=== PATIENT | male | born 2000 | race Two or more races ===

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

== ENCOUNTER 2021-01-17 14:50 | Emergency (ER) | payer OTHER ==
[~2021-01-17] VITALS: Ht 172.7 cm; Wt 80.3 kg
[~2021-01-17 14:50] MED LIST changes: +NEO/5DRO18 EACHEYE
[2021-01-17] MEDS ORDERED: FLUORESCEIN SODIUM OPHTH 1 EA STRIP ONE (15:02)
[2021-01-17] MEDS ORDERED: FLUORESCEIN SODIUM OPHTH 1 EA STRIP OP ONE (15:30)
--- NOTE | 2021-01-17 16:00 | NUR ---
Patient came in to the er c/o right eye pain since yesterday 10/15 pain scale. Both 20/20, L 20/20, R 20/20. On room air, breathing evenly and unlabored. Kept comfortable, will continue to monitor accordingly.
[2021-01-17] MEDS ORDERED: CIPR5DRO RIGHTEYE (16:10)
[2021-01-17 16:13] VITALS: BP 116/61
--- NOTE | 2021-01-17 16:13 | NUR ---
Patient discharged to home in stable condition. Written and verbal after care instructions given. Patient verbalizes understanding of instruction.
== END 2021-01-17 16:13 | disposition home or self-care (01) ==
LOC: ER 15:00
DX: T15.01XA Foreign body in cornea, right eye, initial encounter (principal); J45.909 Unspecified asthma, uncomplicated; Z79.899 Other long term (current) drug therapy; W45.8XXA Other foreign body or object entering through skin, initial encounter; Y93.89 Activity, other specified; Y92.89 Other specified places as the place of occurrence of the external cause; Y99.8 Other external cause status

== ENCOUNTER 2021-10-18 22:03 | Emergency (ER) | payer OTHER ==
[~2021-10-18] VITALS: Ht 172.7 cm; Wt 72.6 kg
[~2021-10-18 22:03] MED LIST changes: +CIPR5DRO RIGHTEYE
[2021-10-18] MEDS ORDERED: FLUORESCEIN SODIUM OPHTH 1 EA STRIP ONE (22:36)
[2021-10-18] MEDS ORDERED: ERYT3.5O9 LEFTEYE (22:45)
[2021-10-18 23:01] VITALS: BP 122/70
--- NOTE | 2021-10-18 23:01 | NUR ---
Patient discharged to home in stable condition. Written and verbal after care instructions given. Patient verbalizes understanding of instruction.
== END 2021-10-18 23:01 | disposition home or self-care (01) ==
LOC: ER 22:15
DX: S05.02XA Injury of conjunctiva and corneal abrasion without foreign body, left eye, initial encounter (principal); J45.909 Unspecified asthma, uncomplicated; Z79.899 Other long term (current) drug therapy; X58.XXXA Exposure to other specified factors, initial encounter; Y93.89 Activity, other specified; Y92.89 Other specified places as the place of occurrence of the external cause; Y99.8 Other external cause status

== ENCOUNTER 2024-01-25 12:32 | Emergency (ER) | payer OTHER ==
[~2024-01-25] VITALS: Ht 162.6 cm; Wt 74.8 kg
[~2024-01-25 12:32] MED LIST changes: +ERYT3.5O9 LEFTEYE
[2024-01-25 13:35] VITALS: BP 139/77; TEMP 97.9; O2SAT 100
[2024-01-25] MEDS ORDERED: KETO5DRO9 LEFTEYE (14:11)
[2024-01-25] MEDS ORDERED: POLY10DR3 EACHEYE (14:11)
== END 2024-01-25 14:27 | disposition home or self-care (01) ==
LOC: ER 12:37
DX: H10.12 Acute atopic conjunctivitis, left eye (principal); J45.909 Unspecified asthma, uncomplicated

== ENCOUNTER 2024-08-20 11:01 | Emergency (ER) | payer OTHER ==
[~2024-08-20] VITALS: Ht 172.7 cm; Wt 79.4 kg
[~2024-08-20 11:01] MED LIST changes: +KETO5DRO9 LEFTEYE; +POLY10DR3 EACHEYE
[2024-08-20 11:11] VITALS: BP 118/83; TEMP 98; O2SAT 100
[2024-08-20] MEDS ORDERED: ERYT3.5O9 RIGHTEYE (11:16)
== END 2024-08-20 11:21 | disposition home or self-care (01) ==
LOC: ER 11:10
DX: H10.31 Unspecified acute conjunctivitis, right eye (principal); J45.909 Unspecified asthma, uncomplicated; Z79.51 Long term (current) use of inhaled steroids; Z79.899 Other long term (current) drug therapy